=== PATIENT | male | born 1975 | race Caucasian/White ===

== ENCOUNTER → 2016-08-10 | Outpatient (CLI) | payer OTHER ==
[~2016-08-10] VITALS: Ht 182.9 cm; Wt 135.2 kg
[~2016-08-10] MED LIST: BACLOFEN20 MG PO; BENICAR HCT 401 EACH PO; CELEXA20 MG PO; HYDROCODONE-AP1 EAC6 PO; NABUMETONE 500500 M1 PO; NAPROSYN500 MG PO; NEURONTIN 300300 M1 PO; ZANAFLEX4 MG PO
--- NOTE | ~2016-08-10 | HPC ---
[facility] [place] [address] PAIN MANAGEMENT CONSULTATION Name: KRYSTAL EDWARDS V [facility] [id number] Admission: 08/10/16 Attend Phys: Krystal Pierre DO Discharge: Date of : 77 Report #: [id number] THIS REPORT FOR: //name// CC: Krystal Smith MD DATE OF SERVICE: 08/10/2016 DATE OF SERVICE: 08/10/2016 REFERRING PHYSICIAN: Krystal Smith M.D. CHIEF COMPLAINT: Low back pain, bilateral lower extremity pain with paresthesias. HISTORY OF PRESENT ILLNESS: As you know, patient is a very pleasant 41-year-old male, who has a longstanding history of low back pain, bilateral lower extremity pain and paresthesias. The patient places pain at the level of 2-3/10 on a daily basis. He states his pain began somewhere in 2012, progressively worsened. He denies specific injury or trauma that has led the symptoms. The patient does relate information that he has had an epidural in the past. This was done for supposedly complex regional pain syndrome of the right lower extremity. He remembers pressure with the injection. He indicates that he has had some physical therapy. He is being taught by his orthopedic surgeon, given stretching exercises and he continues to do this on a daily basis. Despite these exercises and conservative medical therapy, he has failed to improve. He has been referred to our clinic for possible epidural injections. The patient indicates pain is continuous, steady in its presentation, periodically exacerbated. Describes the pain as burning, shooting, cramping, aching, sharp and tender, places current pain score 2/10 daily, average at 2-3/10, worst the pain has been is 8/10. The patient states pain is exacerbated with activities, improves with cold compresses, rest and relaxation. He has been referred to our service by his PCP for evaluation for lumbar radiculopathy. PAST MEDICAL HISTORY: 1. Hypertension. 2. Morbid obesity. PAST SURGICAL HISTORY: 1. Appendectomy 1986. 2. Carpal tunnel release 08/04/2016. SOCIAL HISTORY: The patient denies tobacco, alcohol or IV illicit drug use. He is employed, but has been out of work for the past 2 months due to seasonal changes. He is not receiving workman's compensation [place] [address] PAIN MANAGEMENT CONSULTATION Name: KRYSTAL EDWARDS V [facility] #: [facility] [id number] Admission: 08/10/16 Attend Phys: Krystal Pierre DO Discharge: Date of : 77 Report #: [id number] to obtain disability benefits. He is unaccompanied today. REVIEW OF SYSTEMS: Positive for wearing corrective eyewear, depression, low back pain, bilateral lower extremity pain, carpal tunnel syndrome. All other review of systems negative per 12-point review of systems, and those listed in history of present illness. Pain impact score of 14/7 indicating mild interference of daily activities secondary to pain. ALLERGIES: No known drug allergies. CURRENT MEDICATIONS: Benicar 40/12.5 mg once a day, citalopram 20 mg once a day, naproxen 500 mg twice a day, tizanidine 4 mg twice a day, hydrocodone 5/325 one tab p.o. q. 8 hours p.r.n. for pain. IMAGING: MRI lumbar spine obtained on 11/27/2015 shows T12-L1 unremarkable, L1-2 unremarkable, L2-L3, L3-L4 unremarkable, L4-L5 disk bulge, small posterior disk protrusion, annular fissure, no significant central canal stenosis, bilateral facet arthrosis, mild bilateral neural foraminal stenosis. No definitive L4 nerve root impingement, L5-S1 shows L5 spondylosis with grade 1 spondylolisthesis. Mild broad-based disk bulge, pseudo bulge at the level, small annular fissure. No central canal stenosis, spondylosis, combines with disk bulge to cause bilateral neural foraminal stenosis with bilateral L5 nerve root impingement. PHYSICAL EXAMINATION: VITAL SIGNS: Blood pressure 139/109, pulse 74, respiratory rate 16, unlabored. The patient 98% on room air, height 6 feet tall, weight 298 pounds, BMI calculated at 40.4. GENERAL: Well developed, well nourished, well hydrated, morbidly obese 41-year-old male appearing stated age, placing current pain score 2/10. HEENT: Normocephalic, atraumatic. Pupils equal, round, reactive to light. Extraocular muscles are intact. Sclerae nonicteric without injection. NEUROLOGIC: Cranial nerves 2-12 grossly intact. LUNGS: Clear. No wheezes, rhonchi or rales. CARDIOVASCULAR: Regular. No appreciable gallop or rub. ABDOMEN: Soft, obese, nontender, nondistended, normal active bowel sounds. EXTREMITIES: Show no clubbing, no cyanosis, no edema. The patient does have a surgical bandaging on the right wrist from a carpal tunnel release. Bandages are clean, dry and intact. MUSCULOSKELETAL: Seated straight leg raising negative. Supine straight leg rising positive. Fabere's test is negative. Modified Gaenslen's positive for axial low back pain. Ankle clonus negative. Babinski is negative. Gait is normal. Stance slightly forward flexed lumbar spine. Mild loss of lordotic curvature. Muscle bulk and tone equal and symmetrical in lower extremities, [facility] [address] [place] [address] PAIN MANAGEMENT CONSULTATION Name: KRYSTAL EDWARDS V Room #: REG [facility] Anuja#: [id number] Admission: 08/10/16 Attend Phys: Krystal Pierre DO Discharge: Date of : 77 Report #: [id number] intact to light touch from L1 through S2 dermatomes. Ankle clonus negative. Babinski is negative. ASSESSMENT: 1. Lumbar radiculopathy. 2. Displacement of lumbar intervertebral disk with radiculopathy. 3. Lumbosacral spondylosis with radiculopathy. 4. Degeneration of lumbar spine. 5. Spondylolisthesis of L5 on S1. 6. Chronic intractable pain. PLAN: 1. Based on today's physical exam, history the patient has provided, the description of the patient uses in regards to pain as well as the bilateral nature of his symptoms, likely source of the patient's pain is bilateral neural foraminal stenosis at the L5-S1 level. The patient and I spent 20 minutes of time reviewing his MRI both in the report form and on digital imaging. We discussed the findings mostly at the L4-L5 and L5-S1 level. At the L4-L5 level, I believe is noncontributory to the patient's current symptoms. The symptoms appear to correlate more to the L5-S1 level with the spondylosis and spondylolisthesis and bilateral neural foraminal stenosis affecting the L5 nerve roots bilaterally. The patient and I discussed treatment options for his lumbar radicular symptoms secondary to the findings on his MRI. These would include physical therapy with stretching exercises for which the patient is receiving information through his orthopedic surgeon. We discussed medication management with addition of a neuropathic pain medication changes in his nonsteroidal anti-inflammatories and rotation in his muscle relaxant. We discussed the requested lumbar epidural injection under fluoroscopic guidance. We discussed spinal cord stimulator therapy and surgical options. After reviewing risks and benefits of all the proposed treatment options, the patient chose to begin with medication management and epidural injection. The patient was advised that third republican bear restrictions require that authorization be obtained before we could move forward with an epidural injection. We will begin the authorization process immediately. This could take anywhere from 4-7 working days. We will begin the process to achieve authorization for the first in a series of lumbar epidural injections to address lumbar radiculopathy. 2. The patient will be started on Neurontin 300 mg dose 1 tab p.o. at bedtime for 3 nights, then 2 tabs p.o. bedtime for 3 nights, then 3 tabs p.o. bedtime for 3 nights, then 1 tab in the morning and 3 tabs at night for 3 days, then 2 tabs in the morning and 3 tabs at night. He was given #150 of the medication today. There were no refills. The patient was advised anytime during the titration of his medications. He notes improvement in symptoms, stabilize at that dose. No further escalation. If side effects are noted such as sleepiness, disorientation and confusion, he is to reduce the dose prior to this [address] [address] PAIN MANAGEMENT CONSULTATION Name: KRYSTAL EDWARDS V Room #: REG [facility] Licea#: [id number] Admission: 08/10/16 Attend Phys: Krystal Pierre DO Discharge: Date of : 77 Report #: [id number] and contact our clinic for further evaluation. 3. The patient will discontinue his naproxen and in place will be using nabumetone 500 mg dose 1 tab p.o. t.i.d., he was given #90 tablets. I did provide 2 refills on his medication. He is to watch for dyspepsia, worsening blood pressure, lower extremity edema with the use of this medication. 4. The patient was provided a prescription of baclofen 20 mg dose. He is to take 1 tab p.o. t.i.d. p.r.n. muscle spasms. This will take the place of his tizanidine. He is not to take both medications. He will contact our clinic with any side effects such as sleepiness, disorientation, confusion with this therapy. 5. We will see the patient back in followup visit for an epidural injection under fluoroscopic guidance to address lumbar radicular symptoms. As indicated above, third republican payer restrictions do require authorization before we can move forward with this procedure. We will obtain this authorization as quickly as possible. 6. We wish to thank Dr. Smith for the referral of this patient to our clinic. We will keep you apprised of his response to treatment, as we address his ongoing pain. Again, we wish to thank you for the opportunity to participate in his care. <ELECTRONICALLY SIGNED> By: Krystal Pierre DO 08/11/16 0832 [id number] Krystal Pierre DO /nt
[2016-08-10 08:19] VITALS: BP 139/109
== END ==
LOC: PAIN 07:06
DX: M47.27 Other spondylosis with radiculopathy, lumbosacral region (principal); M51.16 Intervertebral disc disorders with radiculopathy, lumbar region; I10 Essential (primary) hypertension; E66.01 Morbid (severe) obesity due to excess calories; Z68.41 Body mass index [BMI] 40.0-44.9, adult; F32.9 Major depressive disorder, single episode, unspecified; F17.210 Nicotine dependence, cigarettes, uncomplicated